=== PATIENT | female | born 1995 | race Caucasian/White ===

== ENCOUNTER 2023-04-17 12:44 | Emergency (ER) | payer OTHER, SELFPAY ==
[2023-04-17 12:52] VITALS: BP 129/87; PULSE 103; RESP 19; TEMP 36.8; O2SAT 100
--- NOTE | 2023-04-17 13:34 | ED.DENTAL ---
HPI - Dental/Oral General Chief complaint: Dental/Oral Stated complaint: dental pain Time Seen by Provider: 04/17/23 13:34 Source: patient Mode of arrival: ambulatory Limitations: no limitations History of Present Illness HPI Narrative: Patient is a 20-year-old female who denies any past medical history who presents emergency department today ambulatory with a steady gait for evaluation of dental pain. Patient has significant dental decay and has significant anxiety so she states that she is having trouble finding a dentist because she will have to be put under. Most of her pain right now is to the right upper aspect of the mouth. Denies any nausea, vomiting, fever, chills, difficulty swallowing, chest pain, shortness and breath, headache, dizziness. Denies any chance of . Related Data Allergies Allergy/AdvReac Type Severity Reaction Status Date / Time No Known Allergies Allergy Verified 04/17/23 12:55 Exam Narrative: GENERAL:thin, slightly unkempt female resting on exam stretcher, no acute distress noted HEAD: Normocephalic, atraumatic. EYES: PERRLA and EOMI. ENT: there is significant dental decay throughout the entire mouth, no obvious dental abscess. gingival erythema/edema. swallowing with ease. no drainage noted. no trismus/jaw swelling. NECK: Supple. no adenopathy noted. CHEST: Clear to auscultation. No respiratory distress. HEART: Regular rate and rhythm. No murmur heard. Normal peripheral pulses. EXTREMITIES: Normal range of motion. SKIN: Warm, dry, no rash. NEURO: No focal deficits. Alert and oriented x3. PSYCH: slightly anxious Course Vital Signs Vital signs: Vital Signs Temperature 98.2 F 04/17/23 12:52 Pulse Rate 103 H 04/17/23 12:52 Respiratory Rate 19 04/17/23 12:52 Blood Pressure 129/87 04/17/23 12:52 Pulse Oximetry 100 04/17/23 12:52 Oxygen Delivery Room Air 04/17/23 12:52 Temperature 98.2 F 04/17/23 12:52 Pulse Rate 103 H 04/17/23 12:52 Respiratory Rate 19 04/17/23 12:52 Blood Pressure 129/87 04/17/23 12:52 Pulse Oximetry 100 04/17/23 12:52 Oxygen Delivery Room Air 04/17/23 12:52 MDM - Dental/Oral MDM Narrative Medical decision making narrative: Patient with worsening dental pain and dental decay. No palpable abscess. No systemic signs or symptoms. Antibiotics course provided. Follow-up instructions given for dental/oral surgery clinics. Patient was given return precautions and discharged home in stable condition. Patient is nontoxic in appearance. Stable re-evaluation exam just before discharge. Patient in no acute distress.? Vitals within normal limits.discussed return precautions with the patient including all the red flag signs or symptoms of when to return the patient. The patient verbalized understanding and was agreeable with discharge and close follow-up Differential Diagnosis Differential diagnosis: Likely dental caries and toothache Medical Records Attestation: I reviewed the patient's medical records. Discharge Plan Discharge Clinical Impression: Dental decay, Pain, dental, Dental infection Patient Disposition: Home, Self-Care Condition: Stable Instructions: Antibiotic Form, Toothache (ED), Mouth Care (ED) Additional Instructions: Apply 2-5 mLs of viscous lidocaine solution to cotton ball and apply directly to tooth as needed for pain. start taking diclofenac 50 mg tablet every 8 hours). take with food. Do not take any over the counter motrin, aleve, ibuprofen while taking this. Take Tylenol for [id number] pain.? Tylenol usually comes in 325 mg or 500 mg tablets.? Take 500 to 650mg every 6 hours for pain.? Do not exceed 4000 mg per 24-hour period. ? Take antibiotics as prescribed.? Floss especially around that tooth each time after eating to prevent the food from getting stuck and causing worsening pain/and or infection.? SEE DENTIST Emergency Departments (ED) provide medical screening exams and i
[2023-04-17] MEDS: LIDOCAINE HCL 2% VISC SOLN 15 ML UDC PO (13:47)
[2023-04-17] MEDS: AMOXICILLIN/CLAVULANATE K 875-125 MG TAB 1 TABLET PO (13:47)
[2023-04-17] MEDS: KETOROLAC 30 MG/ML VIAL (*BKC) IM (13:47)
== END 2023-04-17 14:45 | disposition home or self-care (01) ==
PROVIDERS: Emergency Provider Nurse Practitioner
DX: K02.9 Dental caries, unspecified (principal); K04.7 Periapical abscess without sinus
CPT/HCPCS: 96372; 99283; A9270; J1885

== ENCOUNTER 2023-06-30 18:34 | Emergency (ER) | payer OTHER, SELFPAY ==
[2023-06-30 19:37] VITALS: BP 111/69; PULSE 102; RESP 18; TEMP 36.6; O2SAT 100
== END 2023-07-01 00:31 | disposition left against medical advice (07) ==
DX: K04.7 Periapical abscess without sinus (principal)
CPT/HCPCS: 99199

== ENCOUNTER 2023-11-07 19:21 | Emergency (ER) | payer OTHER, SELFPAY ==
[2023-11-07 19:31] VITALS: BP 97/63; PULSE 101; RESP 19; TEMP 37; O2SAT 100
--- NOTE | 2023-11-07 19:43 | ED.ABDPAIN ---
HPI - Abdominal Pain General Chief Complaint: Wound/Laceration Stated Complaint: Belly Button Irritation Time Seen by Provider: 11/07/23 19:40 Source: patient Mode of arrival: ambulatory Limitations: no limitations History of Present Illness HPI narrative: Jing is a 28-year-old female patient presenting to the clinic today with complaints of umbilicus pain that started over the last past few days. She is also reporting some pain that comes and goes in the right upper quadrant however she is not having any pain at this time. States that the pain is a cramping sensation. Is having tenderness to palpation over the umbilicus with redness and swelling noted. Related Data Allergies Allergy/AdvReac Type Severity Reaction Status Date / Time No Known Allergies Allergy Verified 11/07/23 19:47 Review of Systems Review of Systems: Pertinent positives per HPI. Patient denies any fever, chills, rash, headache, visual changes, dizziness, cough, runny nose, sore throat, shortness of breath, chest pain, palpitations, nausea, vomiting, diarrhea, constipation, or any urinary issues. PMFSH Comments At the time of my signature, I reviewed and agree with the nursing past medical, surgical, social, and family history. There is no relevant family history pertinent to the patient complaint. Exam Narrative: General: Well-developed, well nourished, in no apparent distress. Head: Normocephalic, atraumatic. Cardio: Regular rate and rhythm, s1 and s2 normal, no murmur appreciated. Resp: Clear to auscultation bilaterally, no rhonchi, rales, wheezing or rubs. Abdomen: Soft, pliable, bowel sounds present in all quadrants, non-tender to palpation, no organomegly, no CVAT tenderness. Course Course Emergency Course: Portions of this record may have been created with voice recognition software. Level of Care: Express Care Visit Vital Signs Vital signs: Vital Signs Temperature 37.0 C 11/07/23 19:31 Pulse Rate 101 H 11/07/23 19:31 Respiratory Rate 11/07/23 19:31 Blood Pressure 97/63 L 11/07/23 19:31 Pulse Oximetry 100 11/07/23 19:31 Oxygen Delivery Room Air 11/07/23 19:31 Temperature 37.0 C 11/07/23 19:31 Pulse Rate 101 H 11/07/23 19:31 Respiratory Rate 19 11/07/23 19:31 Blood Pressure 97/63 L 11/07/23 19:31 Pulse Oximetry 100 11/07/23 19:31 Oxygen Delivery Room Air 11/07/23 19:31 Vital signs reviewed Discharge Plan Discharge Clinical Impression: Abdominal pain, RUQ, Umbilical pain Patient Disposition: Home, Self-Care Condition: Stable Instructions: Antibiotic Form, Abdominal Pain (ED) Additional Instructions: Increase fluids and stay well hydrated Recommend going to the emergency room if your right upper quadrant abdominal pain comes back and is worse. May apply mupirocin cream to the affected area twice daily x7 days May take Tylenol/Motrin as needed for pain or fever Follow-up with your primary care provider this week if symptoms persist or sooner if they worsen Prescriptions: New mupirocin 2 % ointment 1 applic topical BID 7 Days Qty: 22 0RF Follow-up/Referrals: PHYSICIAN,AUDIO VISUAL ENGINEER [Primary Care Provider] - Time of Disposition: 19:46 Quality NIHSS Nursing Documentation ED NIHSS nursing documentation: reviewed/agree
== END 2023-11-07 20:06 | disposition home or self-care (01) ==
PROVIDERS: Emergency Provider Nurse Practitioner Family
DX: R10.11 Right upper quadrant pain (principal); R10.33 Periumbilical pain
CPT/HCPCS: 99213; G0463